=== PATIENT | female | born 1965 | race Caucasian/White ===

== ENCOUNTER 2016-12-26 08:39 | Emergency (ER) | payer BC ==
[2016-12-26] MEDS ORDERED: SODIUM CHLORIDE 0.9% 1,000 ML IV STA ×2 (09:01→10:07)
--- NOTE | 2016-12-26 09:07 | ED ---
Arrhythmia/Palpitations HPI - General Chief Complaint: Arrhythmia/Palpitations Stated Complaint: heart fluttering, hypertension Time Seen by Provider: 12/26/16 08:45 Source: patient, family, RN notes reviewed Mode of arrival: ambulatory Limitations: no limitations - History of Present Illness Initial Comments: This is a 51-year-old female history of hypertension and diabetes who states she has not been on any medication for about a year who states she woke up this morning with some palpitations and fluttering in her chest. She was at work and someone used a blood pressure cuff on her and noticed that her pressure was 213/129 she denies any headache blurry vision nausea vomiting just occasional palpitations. She is notany dysuria or frequency. No blurry vision no focal weakness. She denies any fevers chills or sweats. MD Complaint: palpitations - Related Data Previous Rx's Medication Instructions Recorded Metoprolol Tartrate [Lopressor] 25 mg PO BID #120 tablet 12/26/16 metFORMIN HCL [Glucophage] 500 mg PO BID #60 tab 12/26/16 Allergies Allergy/AdvReac Type Severity Reaction Status Date / Time codeine AdvReac Chest Pain Verified 12/26/16 09:16 Review of Systems ROS Statement: Those systems with pertinent positive or pertinent negative responses have been documented in the HPI. ROS Other: All systems not noted in ROS Statement are negative. Past Medical History Past Medical History: Diabetes Mellitus, Hypertension History of Any Multi-Drug Resistant Organisms: None Reported Past Surgical History: Cholecystectomy, Tonsillectomy Past Psychological History: No Psychological Hx Reported Smoking Status: Former smoker Past Alcohol Use History: Occasional Past Drug Use History: None Reported General Exam - General Exam Comments Initial Comments: This is a well-developed well-nourished awake alert oriented 3 female Limitations: no limitations General appearance: alert, anxious Head exam: Present: atraumatic, normocephalic, normal inspection Eye exam: Present: normal appearance, PERRL, EOMI. Absent: scleral icterus, conjunctival injection, periorbital swelling ENT exam: Present: normal exam, mucous membranes moist Neck exam: Present: normal inspection. Absent: tenderness, meningismus, lymphadenopathy Respiratory exam: Present: normal lung sounds bilaterally. Absent: respiratory distress, wheezes, rales, rhonchi, stridor Cardiovascular Exam: Present: regular rate, normal rhythm, normal heart sounds. Absent: systolic murmur, diastolic murmur, rubs, gallop, clicks GI/Abdominal exam: Present: soft, normal bowel sounds. Absent: distended, tenderness, guarding, rebound, rigid Extremities exam: Present: normal inspection, full ROM, normal capillary refill. Absent: tenderness, pedal edema, joint swelling, calf tenderness Back exam: Present: normal inspection Neurological exam: Present: alert, oriented X3, CN II-XII intact Psychiatric exam: Present: normal affect, normal mood Skin exam: Present: warm, dry, intact, normal color. Absent: rash Course Vital Signs 12/26/16 12/26/16 12/26/16 08:47 09:03 09:06 Temperature 98.1 F Pulse Rate 97 98 Pulse Rate [ 100 Apical] Respiratory 22 17 Rate Blood Pressure 213/129 238/104 O2 Sat by Pulse 98 99 Oximetry 12/26/16 12/26/16 12/26/16 09:24 10:22 11:40 Temperature Pulse Rate 99 98 88 Pulse Rate [ Apical] Respiratory 17 16 16 Rate Blood Pressure 170/83 117/72 197/108 O2 Sat by Pulse 99 98 99 Oximetry EKG Findings - EKG Results: EKG: interpreted by ERMD, sinus rhythm (Sinus rhythm rate 93. Arrival 168 QRS duration 90 QT/QTC of 370/460 poor R-wave progression possible left atrial enlargement no acute findings at this time similar configuration EKG dated 07/31) Medical Decision Making - Medical Decision Making The original intention was to admit the patient but she does not want to be admitted today. And present. I did discuss the case with her and her as well as with Dr. Mathur. Patient be started on beta blockers for her blood pressure and heart rate additionally she'll be placed on metformin she is a follow-up closely with Dr. Mathur. She also was informed about her thyroid as well as the fluid status which is being corrected. She is welcome back at any time. - Lab Data Result diagrams: 12/26/16 09:00 12/26/16 09:00 Lab Results 12/26/16 12/26/16 12/26/16 Range/Units 09:00 09:00 09:00 WBC 8.7 (3.8-10.6) k/uL RBC 5.31 (3.80-5.40) m/uL Hgb 15.2 (11.4-16.0) gm/dL Hct 47.9 H (34.0-46.0) % MCV 90.3 (80.0-100.0) fL MCH 28.6 (25.0-35.0) pg MCHC 31.7 (31.0-37.0) g/dL RDW 12.5 (11.5-15.5) % Plt Count 247 (150-450) k/uL Neutrophils % 45 % Lymphocytes % 45 % Monocytes % 5 % Eosinophils % 1 % Basophils % 1 % Neutrophils # 3.9 (1.3-7.7) k/uL Lymphocytes # 3.9 (1.0-4.8) k/uL Monocytes # 0.5 (0-1.0) k/uL Eosinophils # 0.1 (0-0.7) k/uL Basophils # 0.1 (0-0.2) k/uL PT (9.0-12.0) sec INR (<1.1) APTT (22.0-30.0) sec Sodium 138 (137-145) mmol/L Potassium 4.3 (3.5-5.1) mmol/L Chloride 102 (98-107) mmol/L Carbon Dioxide 23 (22-30) mmol/L Anion Gap 13 mmol/L BUN 20 H (7-17) mg/dL Creatinine 0.45 L (0.52-1.04) mg/dL Est GFR (MDRD) Af Amer >60 (>60 ml/min/1.73 sqM) Est GFR (MDRD) Non-Af >60 (>60 ml/min/1.73 sqM) Glucose 371 H (74-99) mg/dL POC Glucose (mg/dL) (75-99) mg/dL POC Glu Greens Keeper ID Calcium 9.8 (8.4-10.2) mg/dL Magnesium 1.7 (1.6-2.3) mg/dL Total Bilirubin 0.7 (0.2-1.3) mg/dL AST 21 (14-36) U/L ALT 41 (9-52) U/L Alkaline Phosphatase 187 H (38-126) U/L Total Creatine Kinase 70 (30-135) U/L CK-MB (CK-2) 1.6 (0.0-2.4) ng/mL CK-MB (CK-2) Rel Index 2.3 Troponin I <0.012 (0.000-0.034) ng/mL Total Protein 7.4 (6.3-8.2) g/dL Albumin 4.2 (3.5-5.0) g/dL TSH 7.430 H (0.465-4.680) mIU/L Urine Color Urine Appearance (Clear) Urine pH (5.0-8.0) Ur Specific N[place]ma (1.001-1.035) Urine Protein (Negative) Urine Glucose (UA) (Negative) Urine Ketones (Negative) Urine Blood (Negative) Urine Nitrite (Negative) Urine Bilirubin (Negative) Urine Urobilinogen (<2.0) mg/dL Ur Leukocyte Esterase (Negative) Acetone, Qual (Negative) 12/26/16 12/26/16 12/26/16 Range/Units 09:00 09:00 10:48 WBC (3.8-10.6) k/uL RBC (3.80-5.40) m/uL Hgb (11.4-16.0) gm/dL Hct (34.0-46.0) % MCV (80.0-100.0) fL MCH (25.0-35.0) pg MCHC (31.0-37.0) g/dL RDW (11.5-15.5) % Plt Count (150-450) k/uL Neutrophils % % Lymphocytes % % Monocytes % % Eosinophils % % Basophils % % Neutrophils # (1.3-7.7) k/uL Lymphocytes # (1.0-4.8) k/uL Monocytes # (0-1.0) k/uL Eosinophils # (0-0.7) k/uL Basophils # (0-0.2) k/uL PT 9.6 (9.0-12.0) sec INR 0.9 (<1.1) APTT 22.8 (22.0-30.0) sec Sodium (137-145) mmol/L Potassium (3.5-5.1) mmol/L Chloride (98-107) mmol/L Carbon Dioxide (22-30) mmol/L Anion Gap mmol/L BUN (7-17) mg/dL Creatinine (0.52-1.04) mg/dL Est GFR (MDRD) Af Amer (>60 ml/min/1.73 sqM) Est GFR (MDRD) Non-Af (>60 ml/min/1.73 sqM) Glucose (74-99) mg/dL POC Glucose (mg/dL) (75-99) mg/dL POC Glu Greens Keeper ID Calcium (8.4-10.2) mg/dL Magnesium (1.6-2.3) mg/dL Total Bilirubin (0.2-1.3) mg/dL AST (14-36) U/L ALT (9-52) U/L Alkaline Phosphatase (38-126) U/L Total Creatine Kinase (30-135) U/L CK-MB (CK-2) (0.0-2.4) ng/mL CK-MB (CK-2) Rel Index Troponin I (0.000-0.034) ng/mL Total Protein (6.3-8.2) g/dL Albumin (3.5-5.0) g/dL TSH (0.465-4.680) mIU/L Urine Color Yellow Urine Appearance Clear (Clear) Urine pH 6.0 (5.0-8.0) Ur Specific N[place]ma 1.027 (1.001-1.035) Urine Protein Negative (Negative) Urine Glucose (UA) 4+ H (Negative) Urine Ketones 2+ H (Negative) Urine Blood Negative (Negative) Urine Nitrite Negative (Negative) Urine Bilirubin Negative (Negative) Urine Urobilinogen <2.0 (<2.0) mg/dL Ur Leukocyte Esterase Negative (Negative) Acetone, Qual Positive (Negative) 12/26/16 Range/Units 11:16 WBC (3.8-10.6) k/uL RBC (3.80-5.40) m/uL Hgb (11.4-16.0) gm/dL Hct (34.0-46.0) % MCV (80.0-100.0) fL MCH (25.0-35.0) pg MCHC (31.0-37.0) g/dL RDW (11.5-15.5) % Plt Count (150-450) k/uL Neutrophils % % Lymphocytes % % Monocytes % % Eosinophils % % Basophils % % Neutrophils # (1.3-7.7) k/uL Lymphocytes # (1.0-4.8) k/uL Monocytes # (0-1.0) k/uL Eosinophils # (0-0.7) k/uL Basophils # (0-0.2) k/uL PT (9.0-12.0) sec INR (<1.1) APTT (22.0-30.0) sec Sodium (137-145) mmol/L Potassium (3.5-5.1) mmol/L Chloride (98-107) mmol/L Carbon Dioxide (22-30) mmol/L Anion Gap mmol/L BUN (7-17) mg/dL Creatinine (0.52-1.04) mg/dL Est GFR (MDRD) Af Amer (>60 ml/min/1.73 sqM) Est GFR (MDRD) Non-Af (>60 ml/min/1.73 sqM) Glucose (74-99) mg/dL POC Glucose (mg/dL) 334 H (75-99) mg/dL POC Glu Greens Keeper ID [place], Bessy Calcium (8.4-10.2) mg/dL Magnesium (1.6-2.3) mg/dL Total Bilirubin (0.2-1.3) mg/dL AST (14-36) U/L ALT (9-52) U/L Alkaline Phosphatase (38-126) U/L Total Creatine Kinase (30-135) U/L CK-MB (CK-2) (0.0-2.4) ng/mL CK-MB (CK-2) Rel Index Troponin I (0.000-0.034) ng/mL Total Protein (6.3-8.2) g/dL Albumin (3.5-5.0) g/dL TSH (0.465-4.680) mIU/L Urine Color Urine Appearance (Clear) Urine pH (5.0-8.0) Ur Specific N[place]ma (1.001-1.035) Urine Protein (Negative) Urine Glucose (UA) (Negative) Urine Ketones (Negative) Urine Blood (Negative) Urine Nitrite (Negative) Urine Bilirubin (Negative) Urine Urobilinogen (<2.0) mg/dL Ur Leukocyte Esterase (Negative) Acetone, Qual (Negative) - Radiology Data Radiology results: report reviewed (I did review the imaging and reports no acute findings.), image reviewed Disposition Clinical Impression: Hypertensive urgency, Hyperglycemia, Dehydration, Tachycardia Disposition: HOME SELF-CARE Condition: Stable Instructions: Hypertension (ED), Type 2 Diabetes in Adults (ED), Dehydration ( ED), Tachycardia (ED) Additional Instructions: Off work today follow-up with Dr. Mathur as soon as possible Prescriptions: metFORMIN HCL [Glucophage] 500 mg PO BID #60 tab Metoprolol Tartrate [Lopressor] 25 mg PO BID #120 tablet Referrals: Martin Mathur MD [Primary Care Provider] - 1-2 days
[2016-12-26 09:24] LABS: INR 0.9 (<1.1); Partial Thromboplastin Time 22.8 sec (22.0-30.0); Prothrombin Time 9.6 sec (9.0-12.0)
--- NOTE | 2016-12-26 09:25 | XR ---
EXAMINATION TYPE: XR chest 2V DATE OF EXAM: 12/26/2016 9:20 AM COMPARISON: 08/03/2009 TECHNIQUE: PA and lateral views submitted. HISTORY: Dysrhythmia FINDINGS: The lungs are clear and there is no pneumothorax, pleural effusion, or focal pneumonia. Hyperinflat ion suggests COPD. Hypertrophic and degenerative change of the spine noted. IMPRESSION: 1. No acute process.
[2016-12-26 09:26] LABS: AST 21 U/L (14-36); Alkaline Phosphatase 187 U/L (38-126); Anion Gap 13 mmol/L; Basophils # (A) 0.1 k/uL (0-0.2); Basophils % (A) 1 %; Blood Urea Nitrogen 20 mg/dL (7-17); CH 29.8; CHCM 33.2; Calcium 9.8 mg/dL (8.4-10.2); Carbon Dioxide 23 mmol/L (22-30); Chloride 102 mmol/L (98-107); Eosinophils # (A) 0.1 k/uL (0-0.7); Eosinophils % (A) 1 %; Glucose 371 mg/dL (74-99); HCT 47.9 % (34.0-46.0); HDW 2.34; HGB 15.2 gm/dL (11.4-16.0); Luc % (Auto) 3; Lymphocytes # (A) 3.9 k/uL (1.0-4.8); Lymphocytes % (A) 45 %; MCH 28.6 pg (25.0-35.0); MCHC 31.7 g/dL (31.0-37.0); MCV 90.3 fL (80.0-100.0); Magnesium 1.7 mg/dL (1.6-2.3); Mean Platelet Volume 7.5; Monocytes # (A) 0.5 k/uL (0-1.0); Monocytes % (A) 5 %; Neutrophils # (A) 3.9 k/uL (1.3-7.7); Neutrophils % (A) 45 %; Non-African American GFR(MDRD) >60 (>60 ml/min/1.73 sqM); Potassium 4.3 mmol/L (3.5-5.1); RBC 5.31 m/uL (3.80-5.40); RDW 12.5 % (11.5-15.5); Sodium 138 mmol/L (137-145); Total Bilirubin 0.7 mg/dL (0.2-1.3); Total Protein 7.4 g/dL (6.3-8.2); WBC 8.7 k/uL (3.8-10.6); WBC (Perox) 8.57
[2016-12-26 09:32] LABS: ALT 41 U/L (9-52)
[2016-12-26 09:37] LABS: Creatine Kinase 70 U/L (30-135)
[2016-12-26 09:50] LABS: Creatine Kinase MB 1.6 ng/mL (0.0-2.4); Troponin I <0.012 ng/mL (0.000-0.034)
[2016-12-26 10:23] VITALS: RESP 16
[2016-12-26 11:08] LABS: Appearance,Urine Clear (Clear); Bilirubin,Urine Negative (Negative); Glucose,Urine (UA) 4+ (Negative); Leukocyte Esterase,Urine Negative (Negative); Nitrite,Urine Negative (Negative); Protein,Urine Negative (Negative); Specific Gravity,Urine 1.027 (1.001-1.035); UA Billing (MACRO vs. MICRO) CHEM; Urobilinogen,Urine <2.0 mg/dL (<2.0)
[2016-12-26 11:18] LABS: Glucose,Whole Blood 334 mg/dL (75-99)
[2016-12-26] MEDS ORDERED: INSULIN REGULAR 100 UNIT/ML VIAL SQ ONE (11:29)
[2016-12-26] MEDS ORDERED: METOPROLOL TARTRATE 5 MG/5 ML VIAL IVP ONE (11:30)
[2016-12-26 11:53] LABS: Ketones,Urine 2+ (Negative)
[2016-12-26 12:31] VITALS: BP 198/74; PULSE 81; TEMP 97.6
== END 2016-12-26 12:31 | disposition home or self-care (01) ==
LOC: EC 08:39
DX: I10 Essential (primary) hypertension (principal); E86.0 Dehydration; E11.65 Type 2 diabetes mellitus with hyperglycemia; R00.0 Tachycardia, unspecified; Z87.891 Personal history of nicotine dependence; Z88.5 Allergy status to narcotic agent
CPT/HCPCS: 36415; 71020; 80053; 81003; 82009; 82550; 82553; 83735; 84443; 84484; 85025; 85610; 85730; 93005; 96361; 96374; 99285

== ENCOUNTER 2021-11-14 12:08 | Emergency (ER) | payer BC ==
[2021-11-14] MEDS ORDERED: BEBTELOVIMAB (EUA) 175 MG/2 ML VIAL IV ONE (15:30)
[2021-11-14 15:36] VITALS: TEMP 99
[2021-11-14] MEDS ORDERED: ACETAMINOPHEN TAB 325 MG TAB PO STA (15:51)
--- NOTE | 2021-11-14 15:55 | ED ---
General Adult HPI - General Chief complaint: Upper Respiratory Infection Stated complaint: covid+, wants infusion Time Seen by Provider: 11/14/21 15:00 Source: patient, family, RN notes reviewed, old records reviewed Mode of arrival: wheelchair Limitations: no limitations - History of Present Illness Initial comments: Patient is a 56-year-old female with past medical history remarkable for obesity, diabetes, hypertension presents emergency department over concern for positive Covid test. Her recently child from [place]. Both her and him are positive. Symptoms started on November 11. Tested positive today. She was fully vaccinated with booster. Patient endorses occasional nausea, one time episode of vomiting. Endorses mildly productive cough, sneezing, rhinorrhea. Endorses generalized joint pain. His no other acute complaints at this time. Presents seeking monoclonal antibiotic therapy. - Related Data Previous Rx's Medication Instructions Recorded Metoprolol Tartrate [Lopressor] 25 mg PO BID #120 tablet 12/26/16 metFORMIN HCL [Glucophage] 500 mg PO BID #60 tab 12/26/16 Allergies Allergy/AdvReac Type Severity Reaction Status Date / Time codeine AdvReac Chest Pain Verified 11/14/21 12:12 Review of Systems ROS Statement: Those systems with pertinent positive or pertinent negative responses have been documented in the HPI. Review of Systems: CONST: Denies fever EYES: Denies blurry vision ENT: Denies nasal congestion C/V: Denies Chest pain RESP: Denies shortness of breath GI: Denies abdominal pain : Denies dysuria SKIN: Denies rash. MSK: Denies joint pain. NEURO: Denies headache ROS Other: All systems not noted in ROS Statement are negative. Past Medical History Past Medical History: Diabetes Mellitus, Hypertension History of Any Multi-Drug Resistant Organisms: None Reported Past Surgical History: Cholecystectomy, Tonsillectomy Past Psychological History: No Psychological Hx Reported Smoking Status: Never smoker Past Alcohol Use History: Occasional Past Drug Use History: None Reported General Exam - General Exam Comments Initial Comments: General: Appears in no acute distress. Patient is febrile HEAD: Normal with no signs of head trauma. EYES: PERRLA, EOMI, conjunctiva normal, no discharge. ENT: Hearing grossly intact, normal oropharynx. RESPIRATORY: Clear breath sounds bilaterally. No wheezes, rales, or rhonchi. No increased work of breathing. Slightly hypoxic to 94% on room air. C/V: Regular rate and rhythm. S1 and S2 auscultated, no edema, peripheral pulses 2+ and intact throughout ABD: Abd is soft, nontender, nondistended EXT: Normal range of motion, no obvious deformity SKIN: No rashes or lesions observed on exposed skin. NEURO: Alert and oriented 4. Limitations: no limitations Course Vital Signs 11/14/21 11/14/21 11/14/21 12:08 15:06 15:32 Temperature 101.2 F H 99.0 F Pulse Rate 92 79 Respiratory 18 16 16 Rate Blood Pressure 163/81 155/95 O2 Sat by Pulse 94 L 93 L Oximetry Medical Decision Making - Medical Decision Making Based on the patient's presentation and physical exam, she percents positive for Covid seeking medical antibody therapy. I evaluated the patient once they were placed in a room. I do not believe that further laboratory studies and imaging are required at this time. Covid testings already completing it is positive. She is meeting criteria for monoclonal antibiotic therapy. She'll be given Tylenol for fever. We discussed quarantine. They'll evaluate pulse ox on the monitor oxygenation. Patient is in no respiratory distress. She is mildly hypoxic but this is acceptable considering she is COVID-19 positive. Patient tolerated the therapy well. She'll be discharged home at this time. Recommended isolation and quarantine until 2 days symptom-free. I instructed the patient to follow up with their PCP in the next 3 days. I explained that the patient should return to the emergency department if they experience any worsening symptoms. Strict return precautions were discussed with the patient. The patient expressed understanding of these instructions. I answered all questions that the patient had. The patient was discharged home in fair condition with their prescriptions and follow up information. - Lab Data Lab Results 11/14/21 Range/Units 12:14 Coronavirus (PCR) Detected A (Not Detectd) Disposition Clinical Impression: COVID-19 Disposition: HOME SELF-CARE Condition: Fair Instructions (If sedation given, give patient instructions): COVID-19 (Coronavirus Disease 2019) (ED) Additional Instructions: Quarentine until 2 days symptom free. Monitor pulse ox, return if worsening symptoms or oxygen levels less than 90%. Is patient prescribed a controlled substance at d/c from ED?: No Referrals: Ronak Tadeo MD [Primary Care Provider] - 1-2 days Time of Disposition: 16:36
[2021-11-14 17:10] VITALS: BP 141/90; PULSE 81; RESP 18
== END 2021-11-14 17:10 | disposition home or self-care (01) ==
LOC: EC 12:08
DX: U07.1 COVID-19 (principal); E11.9 Type 2 diabetes mellitus without complications; I10 Essential (primary) hypertension; Z79.84 Long term (current) use of oral hypoglycemic drugs; Z88.5 Allergy status to narcotic agent; Z90.49 Acquired absence of other specified parts of digestive tract
CPT/HCPCS: 99284; 87635; Q0222